=== PATIENT | female | born 2000 | race Caucasian/White ===

== ENCOUNTER 2022-09-30 14:30 | Outpatient (CLI) | payer OTHER, SELFPAY | END 2022-09-30 14:31 | disposition home or self-care (01) | PROVIDERS: PCP Family Medicine; Visit Provider Family Medicine | DX: Z00.00 Encounter for general adult medical examination without abnormal findings (principal); E66.01 Morbid (severe) obesity due to excess calories; Z13.6 Encounter for screening for cardiovascular disorders; Z13.1 Encounter for screening for diabetes mellitus | CPT/HCPCS: 80053; 80061; 83695; 86039; 86140; 86200; 86431 ==

== ENCOUNTER 2023-09-27 22:23 | Outpatient (REF) | payer BC, SELFPAY ==
[2023-09-27 23:23] LABS: Amphetamine Screen Urine Negative (Negative); Barbiturate Screen Urine Negative (Negative); Benzodiazepines Screen Urine Negative (Negative); Cannabinoid Screen Urine Negative (Negative); Cocaine Screen Urine Negative (Negative); Methadone Screen Urine Negative (Negative); Methamphetamines Screen Urine Negative (Negative); Opiate Screen Urine Negative (Negative); Oxycodone Screen Urine Negative (Negative); Phencyclidine Screen Urine Negative (Negative); Tricyclic Antidepressant Urine Negative (Negative)
== END 2023-09-27 22:24 | disposition home or self-care (01) ==
LOC: NPINS 22:23
PROVIDERS: PCP Physician Assistant Medical; Visit Provider Nurse Practitioner Psychiatric/Mental Health
DX: F90.2 Attention-deficit hyperactivity disorder, combined type (principal)
CPT/HCPCS: 80306

== ENCOUNTER 2023-10-20 10:53 | Outpatient (CLI) | payer BC, SELFPAY | END 2023-10-20 10:54 | disposition home or self-care (01) | LOC: NFLDREF 10-21 11:19 | PROVIDERS: PCP Physician Assistant Medical; Referring Provider Physician Assistant Medical; Visit Provider Physician Assistant Medical | DX: Z00.00 Encounter for general adult medical examination without abnormal findings (principal); Z11.3 Encounter for screening for infections with a predominantly sexual mode of transmission | CPT/HCPCS: 87491; 87591 ==

== ENCOUNTER 2023-11-02 07:55 | Outpatient (CLI) | payer BC, SELFPAY | END 2023-11-02 07:56 | disposition home or self-care (01) | PROVIDERS: PCP Physician Assistant Medical; Visit Provider Physician Assistant Medical | DX: Z82.49 Family history of ischemic heart disease and other diseases of the circulatory system (principal) | CPT/HCPCS: 93306 ==

== ENCOUNTER 2023-12-01 13:11 | Outpatient (CLI) | payer BC, SELFPAY | END 2023-12-01 13:12 | disposition home or self-care (01) | LOC: NFLDREF 12-05 16:07 | PROVIDERS: PCP Physician Assistant Medical; Referring Provider Physician Assistant Medical; Visit Provider Physician Assistant | DX: R30.0 Dysuria (principal) | CPT/HCPCS: 87086 ==

== ENCOUNTER 2024-02-16 09:52 | Outpatient (CLI) | payer BC, SELFPAY | END 2024-02-16 09:53 | disposition home or self-care (01) | LOC: FRMREF 09:53 | PROVIDERS: PCP Physician Assistant Medical; Visit Provider Registered Nurse | DX: R82.90 Unspecified abnormal findings in urine | CPT/HCPCS: 87086 ==

== ENCOUNTER 2024-02-23 12:13 | Outpatient (CLI) | payer BC, SELFPAY ==
--- NOTE | 2024-02-23 12:15 | CRLHL7_ITS ---
For Patients: As a result of the Century Cures Act, medical imaging exams and procedure reports are released immediately into your electronic medical record. You may view this report before your referring provider. If you have questions, please contact your health care provider. CLINICAL HISTORY: Assess IUD, cramping TECHNIQUE: 2D rivas scale ultrasound. In addition color Doppler and spectral Doppler analysis was performed of the pelvis using a transabdominal and transvaginal approach. FINDINGS: The uterus measures 7.9 x 3.9 x 5.1 cm. The endometrial lining appears normal and measures 5.3 mm in thickness. Good position of an IUD within the endometrial canal. The right ovary measures 3.0 x 2.1 x 3.0 cm in size and the left ovary measures 2.6 x 1.3 x 1.4 cm. The ovaries demonstrate normal arterial and venous blood flow on color Doppler and spectral Doppler analysis. There are no suspicious fluid collections within the cul-de-sac. Simple cyst right ovary measures 2.1 cm. IMPRESSION: Normal position of an IUD within the endometrial canal. Incidental simple right ovarian cyst measuring 2.1 cm. No torsion, adnexal mass or excess pelvic free fluid. Dictated by Eleno Leonard MD @ 02/24/2024 9:54:25 AM (Electronically Signed)
== END 2024-02-23 12:14 | disposition home or self-care (01) ==
LOC: US 12:13
PROVIDERS: PCP Physician Assistant Medical; Visit Provider Registered Nurse
DX: Z30.431 Encounter for routine checking of intrauterine contraceptive device (principal)
CPT/HCPCS: 76830; 76856; 93976

== ENCOUNTER 2024-11-12 07:51 | Outpatient (CLI) | payer BC, SELFPAY | END 2024-11-12 07:52 | disposition home or self-care (01) | LOC: FRMREF 07:53 | PROVIDERS: PCP Physician Assistant Medical; Visit Provider Physician Assistant Medical | DX: E04.1 Nontoxic single thyroid nodule (principal) | CPT/HCPCS: 84443 ==

== ENCOUNTER 2024-11-16 09:05 | Outpatient (CLI) | payer BC, SELFPAY ==
--- NOTE | 2024-11-16 09:15 | CRLHL7_ITS ---
For Patients: As a result of the Century Cures Act, medical imaging exams and procedure reports are released immediately into your electronic medical record. You may view this report before your referring provider. If you have questions, please contact your health care provider. INDICATION: Thyroid nodule COMPARISON: none TECHNIQUE: Jewell scale and color Doppler images were acquired of the thyroid gland. FINDINGS: The thyroid gland demonstrates normal uniform echogenicity and has a smooth outer contour. The right lobe measures 5.4 x 1.1 x 1.9 cm and the left lobe measures 5.8 x 1.1 x 1.8 cm in size. Isthmus measures 1.9 millimeter. There are no suspicious masses or nodules. The color Doppler images demonstrate normal vascularity. There is no evidence of cervical lymphadenopathy or parathyroid mass. Small cystic nodules are present bilaterally measuring up to 5 x 3 x 4 millimeters on the right and 6 x 2 x 6 millimeters on the left, TR 1. IMPRESSION: Mild bilateral 9 colloid cysts. No suspicious findings. No further follow-up indicated. Dictated by Eleno Leonard MD @ 11/16/2024 2:01:03 PM (Electronically Signed)
== END 2024-11-16 09:06 | disposition home or self-care (01) ==
LOC: US 09:07
PROVIDERS: PCP Physician Assistant Medical; Visit Provider Physician Assistant Medical
DX: E04.1 Nontoxic single thyroid nodule (principal)
CPT/HCPCS: 76536

== ENCOUNTER 2025-01-28 11:46 | Outpatient (CLI) | payer BC, SELFPAY ==
[2025-01-28 12:11] LABS: Trichomonas No Trichomonas Seen (None Seen)
== END 2025-01-28 11:47 | disposition home or self-care (01) ==
PROVIDERS: PCP Physician Assistant Medical; Visit Provider Physician Assistant Medical
DX: R35.0 Frequency of micturition (principal)
CPT/HCPCS: 87086; 87210; 87491; 87591